=== PATIENT | female | born 1955 ===

== ENCOUNTER → 2018-12-07 | Outpatient (CLI) | payer BC | END | disposition home or self-care (01) | LOC: LAB SHORT 19:21 → LAB 19:21 | DX: H60.392 Other infective otitis externa, left ear (principal) | CPT/HCPCS: 87070; 87077; 87106; 87186; 87205 ==

== ENCOUNTER → 2019-02-22 | Outpatient (CLI) | payer BC ==
[2019-02-23 15:07] LABS: HPV 16 Negative (Negative); HPV 18 Negative (Negative); HPV OTHER HR TYPES Negative (Negative)
== END ==
LOC: LAB SHORT 08:38 → LAB 08:38
PROVIDERS: Student in an Organized Health Care Education/Training Program
DX: Z12.4 Encounter for screening for malignant neoplasm of cervix (principal)
CPT/HCPCS: 87624; G0145

== ENCOUNTER → 2021-07-08 | Outpatient (CLI) | payer BC | END | disposition home or self-care (01) | LOC: LAB SHORT 16:10 | DX: N30.01 Acute cystitis with hematuria (principal) | CPT/HCPCS: 87077; 87086; 87186 ==

== ENCOUNTER → 2021-12-09 | Outpatient (CLI) | payer OTHER | LOC: LAB 09:30 → LAB SHORT 09:30 | DX: N30.01 Acute cystitis with hematuria (principal) | CPT/HCPCS: 87077; 87086; 87186 ==

== ENCOUNTER → 2022-08-26 | Outpatient (CLI) | payer OTHER | LOC: LAB 09:32 → LAB SHORT 09:32 | DX: R30.0 Dysuria (principal); R31.9 Hematuria, unspecified | CPT/HCPCS: 87077; 87086; 87186 ==

== ENCOUNTER → 2022-12-14 | Outpatient (CLI) | payer OTHER | LOC: LAB SHORT 16:00 → LAB 16:00 | DX: R30.0 Dysuria (principal) | CPT/HCPCS: 87077; 87086; 87186 ==

== ENCOUNTER → 2023-11-17 | Outpatient (CLI) | payer OTHER | LOC: LAB 13:06 → LAB SHORT 13:06 | DX: J02.9 Acute pharyngitis, unspecified (principal) | CPT/HCPCS: 87081 ==

== ENCOUNTER → 2024-04-08 | Outpatient (CLI) | payer OTHER | LOC: LAB SHORT 10:30 → LAB 10:30 | DX: R30.0 Dysuria (principal) | CPT/HCPCS: 87086 ==